=== PATIENT | female | born 1975 | race African-American/Black ===

== ENCOUNTER 2016-07-02 00:30 | Emergency (ER) | payer BC, MEDICAID ==
[~2016-07-02] VITALS: Ht 177.8 cm; Wt 107.0 kg
[~2016-07-02 00:30] MED LIST: 1-ME1LIQ PO; ADVAI500I PO; ALBU8I INH; AMLO10TA2 PO; BUPR150T66 PO; FLUT50SP EACH NARE; IBUP800 PO; SUMA25 PO
[2016-07-02 00:33] VITALS: BP 164/87; PULSE 80; RESP 16; TEMP 98; O2SAT 99
[2016-07-02] MEDS ORDERED: DICL75TA PO (01:06)
--- NOTE | 2016-07-02 01:12 | PD ---
HPI Chief Complaint: Musculoskeletal Complaint Time Seen by Provider: 01:09 Travel History International Travel<30 days: No Contact w/Intl Traveler<30days: No Traveled to known affect area: No History of Present Illness HPI 40-year-old white female presents to emergency Department with complaints of bilateral knee pain over last several months. She states that she works 2 jobs. She is on her feet all the time. She goes up and down stairs. She states that she has not had a knee injury in the past. She does not report playing sports in school. She denies any numbness or tingling. She does state that at the end of the day her feet appear to be more swollen. Pain is mild to moderate. Worse with standing on her feet for long hours. Some relief with elevation and rest. PFSH Past Medical History Narrative Medical Hypertension, hypothyroidism Hx Anticoagulant Therapy: No Asthma: Yes Cerebrovascular Accident: No Diabetes: No Diminished Hearing: No Hypertension: Yes Respiratory: Yes (ASTHMA) Thyroid Disease: Yes (HYPER) Tetanus Vaccination: < 5 Years Influenza Vaccination: No ?: Not LMP: 06/01/16 Tubal Ligation: Yes Past Surgical History Narrative Surgical Tubal ligation Social History Alcohol Use: No Tobacco Use: No Substance Use: No Allergies-Medications (Allergen,Severity, Reaction): Coded Allergies: Penicillin (Verified Allergy, Unknown, 07/02/16) Reported Meds & Prescriptions Reported Meds & Active Scripts Active Diclofenac Sodium DR (Diclofenac Sodium) 75 Mg Tabdr 75 Mg PO BID Amlodipine (Amlodipine Besylate) 10 Mg Tab 10 Mg PO DAILY Review of Systems Except as stated in HPI: all other systems reviewed are Neg Physical Exam Narrative GENERAL: This is a well-nourished, well-developed patient, in no apparent distress. SKIN: No rashes, ecchymoses or lesions. Warm and dry. HEAD: Atraumatic. Normocephalic. EYES: PERRL, EOMI, no discharge or injection. No scleral icterus. EARS: Clear NOSE: Nasal turbinates appear normal. THROAT: Mucosa pink and moist. Airway patent. NECK: Trachea midline. supple, moves head freely. LUNGS: Clear to auscultation. CV: Regular in rhythm. ABDOMEN: Soft nontender. EXT: No clubbing cyanosis or edema. Examination of both knees reveal no obvious deformity. No erythema, warmth or joint effusion. She has full range of motion. No instability. No localizing bony tenderness. She has intact sensation with good distal pulses. No calf tenderness. No Homans sign. Data Data Last Documented VS Vital Signs Date Time Temp Pulse Resp B/P Pulse Ox O2 Delivery O2 Flow Rate FiO2 07/02/16 00:48 16 07/02/16 00:33 98.0 80 164/87 99 Room Air Orders Naproxen (Naprosyn) (07/02/16 01:15) MDM Medical Decision Making Medical Screen Exam Complete: Yes Emergency Medical Condition: Yes Medical Record Reviewed: Yes Differential Diagnosis MDM: High Differential diagnoses: Fracture, sprain, strain, dislocation, contusion, neurovascular injury Narrative Course Patient is given Naprosyn 500 mg by mouth. This is bilateral knee pain Diagnosis Primary Impression: Bilateral knee pain Patient Instructions: General Instructions Departure Forms: Tests/Procedures, Work Release Special Instructions: No work 2 days. Additional Instructions: Rest. Elevation. Ice. Medications as directed. Follow-up with your doctor in 1 week. Return to the ER for emergencies. Med/Other Pt SpecificInfo: Prescription(s) given Scripts Diclofenac Sodium DR 75 Mg Tabdr75 Mg PO BID #30 TAB Prov:Steph Fisher MD 07/02/16 Disposition: 01 DISCHARGE HOME Condition: Stable Rajinder Azul Jul 02, 2016 01:12
[2016-07-02] MEDS ORDERED: NAPROXEN 500 MG TAB PO ONE (01:15)
== END 2016-07-02 01:24 | disposition home or self-care (01) ==
LOC: NEPB 00:30
DX: M25.561 Pain in right knee (principal); M25.562 Pain in left knee
CPT/HCPCS: 99283

== ENCOUNTER 2016-09-30 20:59 | Emergency (ER) | payer BC, MEDICAID ==
[~2016-09-30] VITALS: Ht 177.8 cm; Wt 111.0 kg
[~2016-09-30 20:59] MED LIST changes: -1-ME1LIQ PO; -ADVAI500I PO; -ALBU8I INH; -BUPR150T66 PO; +DICL75TA PO; -FLUT50SP EACH NARE; -IBUP800 PO; -SUMA25 PO
[2016-09-30 21:00] VITALS: BP 173/100; PULSE 80; RESP 16; TEMP 99.3; O2SAT 97
[2016-10-01] MEDS ORDERED: PROCHLORPERAZINE INJ 10 MG/2 ML VIAL IV PUSH ONE (00:15)
[2016-10-01] MEDS ORDERED: diphenhydrAMINE HCL 50 MG/ML VIAL IV PUSH ONE (00:15)
[2016-10-01] MEDS ORDERED: KETOROLAC TROMETHAMINE 30 MG/ML (IVP) VIAL IV PUSH ONE (00:15)
--- NOTE | 2016-10-01 00:51 | PD ---
HPI Chief Complaint: Headache Time Seen by Provider: 00:07 Travel History International Travel<30 days: No Contact w/Intl Traveler<30days: No Traveled to known affect area: No History of Present Illness HPI Patient is a 40 year old female who comes in complaining of headache. She says she has had the pain for the past two days. She says the pain is mostly in the top of her head and she has had some nausea with one episode of vomiting this afternoon. She says she thinks it may be related to the fact she has been out of her blood pressure medication. She says she does get headaches and this is similar to previous headaches. She was concerning because she had some pain and numbness to her left lower arm. She denies any chest pain or SOB. She denies any head injuries. She has been taking Excedrin with minimal improvement in her headache. PFSH Past Medical History Hx Anticoagulant Therapy: No Asthma: Yes Cerebrovascular Accident: No Diabetes: No Diminished Hearing: No Hypertension: Yes Respiratory: Yes (ASTHMA) Thyroid Disease: Yes (HYPER) Tetanus Vaccination: < 5 Years Influenza Vaccination: No ?: Not LMP: 2 WEEKS AGO Tubal Ligation: Yes Past Surgical History Surgical History: No Previous Surgery Social History Alcohol Use: No Tobacco Use: No Substance Use: No Allergies-Medications (Allergen,Severity, Reaction): Coded Allergies: Penicillin (Verified Allergy, Unknown, 09/30/16) Reported Meds & Prescriptions Reported Meds & Active Scripts Active Diclofenac Sodium DR (Diclofenac Sodium) 75 Mg Tabdr 75 Mg PO BID Amlodipine (Amlodipine Besylate) 10 Mg Tab 10 Mg PO DAILY Review of Systems Except as stated in HPI: all other systems reviewed are Neg General / Constitutional: No: Fever, Chills Eyes: No: Blurred Vision HENT: Positive: Headaches Cardiovascular: No: Chest Pain or Discomfort Respiratory: No: Shortness of Breath Gastrointestinal: Positive: Nausea, Vomiting, No: Abdominal Pain Musculoskeletal: Positive: Pain, No: Edema Skin: No Rash, No Change in Pigmentation Neurologic: No: Weakness, Dizziness Physical Exam Narrative GENERAL: Awake and alert, in no acute distress. SKIN: Focused skin assessment warm/dry. HEAD: Atraumatic. Normocephalic. EYES: Pupils equal and round. No scleral icterus. Extraocular movements intact. ENT: Mucous membranes pink and moist. NECK: Trachea midline. No JVD. CARDIOVASCULAR: Regular rate and rhythm. No murmur appreciated. RESPIRATORY: No accessory muscle use. Clear to auscultation. Breath sounds equal bilaterally. GASTROINTESTINAL: Abdomen soft, non-tender, nondistended. MUSCULOSKELETAL: No obvious deformities. No clubbing. No cyanosis. No edema. NEUROLOGICAL: Awake and alert. No obvious cranial nerve deficits. Motor grossly within normal limits. Normal speech. PSYCHIATRIC: Appropriate mood and affect; insight and judgment normal. Data Data Last Documented VS Vital Signs Date Time Temp Pulse Resp B/P Pulse Ox O2 Delivery O2 Flow Rate FiO2 09/30/16 21:40 16 09/30/16 21:00 99.3 80 173/100 97 Room Air Orders Complete Blood Count With Diff (10/01/16 00:14) Comprehensive Metabolic Panel (10/01/16 00:14) Electrocardiogram (10/01/16 ) Troponin I (10/01/16 00:14) Prochlorperazine Inj (Compazine Inj) (10/01/16 00:15) Diphenhydramine Inj (Benadryl Inj) (10/01/16 00:15) Ketorolac Inj (Toradol Inj) (10/01/16 00:15) Ed Urine Pregnancytest Poc (10/01/16 00:14) Amlodipine (Norvasc) (10/01/16 00:15) Labs Laboratory Tests Test 10/01/16 00:45 White Blood Count 8.9 TH/MM3 Red Blood Count 4.22 MIL/MM3 Hemoglobin 11.7 GM/DL Hematocrit 35.4 % Mean Corpuscular Volume 84.1 FL Mean Corpuscular Hemoglobin 27.7 PG Mean Corpuscular Hemoglobin 33.0 % Concent Red Cell Distribution Width 14.7 % Platelet Count 308 TH/MM3 Mean Platelet Volume 8.7 FL Neutrophils (%) (Auto) 40.9 % Lymphocytes (%) (Auto) 46.9 % Monocytes (%) (Auto) 9.4 % Eosinophils (%) (Auto) 1.7 % Basophils (%) (Auto) 1.1 % Neutrophils # (Auto) 3.6 TH/MM3 Lymphocytes # (Auto) 4.2 TH/MM3 Monocytes # (Auto) 0.8 TH/MM3 Eosinophils # (Auto) 0.2 TH/MM3 Basophils # (Auto) 0.1 TH/MM3 CBC Comment DIFF FINAL Differential Comment Sodium Level 138 MEQ/L Potassium Level 3.4 MEQ/L Chloride Level 102 MEQ/L Carbon Dioxide Level 28.7 MEQ/L Anion Gap 7 MEQ/L Blood Urea Nitrogen 9 MG/DL Creatinine 0.98 MG/DL Estimat Glomerular Filtration 77 ML/MIN Rate Random Glucose 92 MG/DL Calcium Level 9.1 MG/DL Total Bilirubin 0.3 MG/DL Aspartate Amino Transf 28 U/L (AST/SGOT) Alanine Aminotransferase 26 U/L (ALT/SGPT) Alkaline Phosphatase 83 U/L Troponin I LESS THAN 0.02 NG/ML Total Protein 8.1 GM/DL Albumin 3.6 GM/DL [facility] Medical Decision Making Medical Screen Exam Complete: Yes Emergency Medical Condition: Yes Medical Record Reviewed: Yes Interpretation(s) ECG shows normal sinus rhythm at 81, no ST elevation or depression. T-wave flattening in lead 3. Differential Diagnosis tension headache vs migraine vs hypertensive urgency Narrative Course Patient is a 40 year old female who comes in complaining of a headache. Exam shows no neurologic abnormalities. She is also concerned her BP is high because she is out of her BP medication. IV established, labs sent. Given her Amlodipine, compazine, Benadryl, Toradol. After her labs were drawn and she received her medications, patient pulled out her IV and left the hospital. She did not inform anyone she was leaving, she was just not found in her room and never came back. Diagnosis Primary Impression: Headache Qualified Code: R51 - Acute nonintractable headache, unspecified headache type Disposition: 07 AGAINST MEDICAL ADVICE Viktoria Walls MD October 01, 2016 00:51
[2016-10-01 01:00] LABS: AUTOMATED NEUTROPHIL # 3.6 TH/MM3 (1.8-7.7); BASOPHIL # 0.1 TH/MM3 (0-0.2); BASOPHIL % 1.1 % (0.0-2.0); EOSINOPHIL # 0.2 TH/MM3 (0-0.4); EOSINOPHIL % 1.7 % (0.0-4.0); HEMATOCRIT 35.4 % (35.0-46.0); HEMO FLAGS DIFF FINAL; LYMPH % 46.9 % (9.0-44.0); LYMPHOCYTE # 4.2 TH/MM3 (1.0-4.8); MEAN CELL VOLUME 84.1 FL (80.0-100.0); MEAN CORPUSCULAR HEMOGLOBIN 27.7 PG (27.0-34.0); MONO % 9.4 % (0.0-8.0); NEUT % 40.9 % (16.0-70.0); PLATELET COUNT 308 TH/MM3 (150-450); RED BLOOD COUNT 4.22 MIL/MM3 (4.00-5.30); RED CELL DISTRIBUTION WIDTH 14.7 % (11.6-17.2); WHITE BLOOD COUNT 8.9 TH/MM3 (4.0-11.0)
[2016-10-01 01:20] LABS: ALKALINE PHOSPHATASE 83 U/L (45-117); TOTAL BILIRUBIN ADULT 0.3 MG/DL (0.2-1.0)
[2016-10-01 01:21] LABS: ALT (GPT) 26 U/L (10-53); ANION GAP 7 MEQ/L (5-15); AST (GOT) 28 U/L (15-37); BICARBONATE 28.7 MEQ/L (21.0-32.0); BLOOD UREA NITROGEN 9 MG/DL (7-18); CHLORIDE 102 MEQ/L (98-107); GLOMERULAR FILTRATION RATE 77 ML/MIN (>89); POTASSIUM 3.4 MEQ/L (3.5-5.1); SODIUM (NA) 138 MEQ/L (136-145)
--- NOTE | 2016-10-01 14:17 | EKG ---
Date Performed: 10/01/2016 Time Performed: 00:39:18 PTAGE: 40 years EKG: Sinus rhythm NONSPECIFIC ST & T-WAVE ABNORMALITY BORDERLINE ECG PREVIOUS TRACING : 01/24/2015 21.51 Compared to prior tracing no significant change DOCTOR: Luis Manuel Figueroa Interpretating Date/Time 10/01/2016 14:15:17
== END 2016-10-01 02:45 | disposition home or self-care (01) ==
LOC: NEPC 20:59
DX: R51 Headache (principal); I10 Essential (primary) hypertension; Z53.21 Procedure and treatment not carried out due to patient leaving prior to being seen by health care provider
CPT/HCPCS: 80053; 84484; 84703; 85025; 93005; 96374; 96375; 99284; J0780; J1200; J1885